=== PATIENT | female | born 1975 | race Caucasian/White ===

== ENCOUNTER 2017-12-11 20:38 | Emergency (ER) | payer BC ==
[2017-12-11 20:44] VITALS: BP 135/87; PULSE 83; RESP 17; TEMP 99
[2017-12-11] MEDS ORDERED: DIPH,PERTUS(ACELL)TETVAC-LF 0.5 ML VIAL IM ONE (20:55)
--- NOTE | 2017-12-11 21:19 | XR ---
EXAMINATION TYPE: XR finger LT DATE OF EXAM: 12/11/2017 COMPARISON: NONE HISTORY: Index finger laceration TECHNIQUE: Three-view left index finger FINDINGS: No acute fractures are evident. Soft tissues appear normal. Patient's reported laceration i s not identified. No radiopaque foreign bodies are evident. IMPRESSION: 1. No acute osseous abnormality. 2. No radiopaque foreign bodies.
--- NOTE | 2017-12-11 21:38 | ED ---
Wound/Laceration HPI - General Chief Complaint: Wound/Laceration Stated Complaint: finger lac Time Seen by Provider: 12/11/17 20:48 Source: patient, RN notes reviewed Mode of arrival: ambulatory Limitations: no limitations - History of Present Illness Initial Comments: This is a 42-year-old female who presents to the emergency department with chief complaint of finger laceration. Patient states that approximately 30 minutes prior to arrival she was cutting frozen chicken with a knife. She slipped and lacerated the back of her left index finger. Patient states she was unable to get the bleeding under control. She states she does not believe she is up-to-date with her tetanus vaccination. Denies any other injury. Denies fever, chills, chest pain, shortness of breath, abdominal pain, nausea or vomiting, constipation or diarrhea, dysuria or hematuria, numbness or tingling, headache or vision changes. - Related Data Home Medications Medication Instructions Recorded Confirmed Citalopram Hydrobromide [CeleXA] 40 mg PO DAILY 12/11/17 12/11/17 Lisinopril [Zestril] 10 mg PO DAILY 12/11/17 12/11/17 SUMAtriptan SUCCINATE [Imitrex] 25 mg PO ONCE 12/11/17 12/11/17 Previous Rx's Medication Instructions Recorded Cephalexin [Keflex] 500 mg PO Q12HR #20 cap 12/11/17 Allergies Allergy/AdvReac Type Severity Reaction Status Date / Time codeine AdvReac Nausea & Verified 12/11/17 20:45 Vomiting Review of Systems ROS Statement: Those systems with pertinent positive or pertinent negative responses have been documented in the HPI. ROS Other: All systems not noted in ROS Statement are negative. Past Medical History Past Medical History: Hypertension History of Any Multi-Drug Resistant Organisms: None Reported Past Surgical History: Section, Tubal Ligation, Uterine Ablation Additional Past Surgical History / Comment(s): eye surgery when 3 years of age Past Psychological History: Anxiety, Depression Smoking Status: Never smoker Past Alcohol Use History: None Reported Past Drug Use History: None Reported General Exam - General Exam Comments Initial Comments: General: Awake and alert, well-developed; in no apparent distress. HEENT: Head atraumatic, normocephalic. Pupils are equal, round and reactive to light. Extraocular movements intact. Neck: Supple. Normal ROM. Cardiovascular: Regular rate and rhythm. No murmurs, rubs or gallops. Chest symmetrical. Respiratory: Lungs clear to auscultation bilaterally. No wheezes, rales or rhonchi. Normal respiratory effort with no use of accessory muscles. Musculoskeletal: Normal active range of motion of left index finger. There is an approximately 1.0 cm flap-like laceration dorsal aspect of left index finger between PIP and DIP joints. Sensation is intact. Radial pulses are 2+ equal and palpable bilaterally. Skin: [place], warm and dry without rashes. Laceration as noted above. Neurological: Alert and oriented x3. CN II-XII grossly intact. Speech is fluent and answers are appropriate. No focal neuro deficits. Psychiatric: Normal mood and affect. No overt signs of depression or anxiety noted. Limitations: no limitations Course Vital Signs 12/11/17 20:40 Temperature 99.0 F Pulse Rate 83 Respiratory 17 Rate Blood Pressure 135/87 O2 Sat by Pulse 99 Oximetry Procedures - Laceration Laceration #1 Consent Obtained: verbal consent Indication: laceration Site: hand (dorsal left index finger ) Size (cm): 1 Description: flap Depth: simple, single layer Anesthetic Used: lidocaine 1% Anesthesia Technique: nerve block Amount (mls): 4 Pre-repair: wound explored, irrigated extensively, deep structures intact Size of Sutures: 5-0 Number of Sutures: 2 Technique: simple, interrupted Patient Tolerated Procedure: well, no complications Medical Decision Making - Medical Decision Making This is a 42-year-old female who presented to the emergency department for evaluation of a left index finger laceration. Patient was made up-to-date with her tetanus vaccination. X-ray revealed no acute osseous abnormalities. 2 sutures were placed and patient tolerated well without complication. She is neurovascularly intact and in no acute distress. She'll be discharged home with prescription for Keflex. Recommended removal of sutures in 10-14 days. Patient is in agreement with plan and voices understanding. All questions were answered. - Radiology Data Radiology results: report reviewed X-ray left index finger impression: 1. No acute osseous abnormality. 2. No radiopaque foreign bodies. Disposition Clinical Impression: Finger laceration Disposition: HOME SELF-CARE Condition: Good Instructions: Finger Laceration (ED) Additional Instructions: Please have sutures removed in 10-14 days either here at the emergency department or with your primary care provider. Please keep wound clean and dry for the next 24-48 hours. Please take medications as prescribed. Please follow up with primary care provider within 1-2 days. Return to emergency department if symptoms should worsen or any concerns arise. Prescriptions: Cephalexin [Keflex] 500 mg PO Q12HR #20 cap Referrals: Tyrell Cardona MD [Primary Care Provider] - 1-2 days Time of Disposition: 21:43
== END 2017-12-11 21:45 | disposition home or self-care (01) ==
LOC: EC 20:38
DX: S61.211A Laceration without foreign body of left index finger without damage to nail, initial encounter (principal); I10 Essential (primary) hypertension; F32.9 Major depressive disorder, single episode, unspecified; Z79.899 Other long term (current) drug therapy; Z88.5 Allergy status to narcotic agent; Z23 Encounter for immunization; W26.0XXA Contact with knife, initial encounter; Y93.G1 Activity, food preparation and clean up
CPT/HCPCS: 12001; 90471; 90715; 99283

== ENCOUNTER 2022-01-25 19:03 | Emergency (ER) | payer OTHER ==
[2022-01-25 19:20] VITALS: TEMP 97.9
[2022-01-25] MEDS ORDERED: KETOROLAC 15 MG/ML 1 ML VIAL IM STA (19:34)
[2022-01-25] MEDS ORDERED: CYCLOBENZAPRINE 10 MG TAB PO STA (19:39)
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
[2022-01-25 21:31] VITALS: BP 144/92; PULSE 77; RESP 18
== END 2022-01-25 21:31 | disposition home or self-care (01) ==
LOC: EC 19:03
DX: S16.1XXA Strain of muscle, fascia and tendon at neck level, initial encounter (principal); I10 Essential (primary) hypertension; F32.A Depression, unspecified; F41.9 Anxiety disorder, unspecified; F12.90 Cannabis use, unspecified, uncomplicated; Z79.82 Long term (current) use of aspirin; Z79.899 Other long term (current) drug therapy; V89.2XXA Person injured in unspecified motor-vehicle accident, traffic, initial encounter; Y92.410 Unspecified street and highway as the place of occurrence of the external cause
CPT/HCPCS: 72072; 72040; 99284; 96372; J1885

== ENCOUNTER 2022-04-07 18:51 | Emergency (ER) | payer OTHER ==
[2022-04-07 19:03] VITALS: BP 148/93; PULSE 90; RESP 16
[2022-04-07 20:14] LABS: Appearance,Urine Clear (Clear); Bacteria,Urine Occasional /hpf; Bilirubin,Urine Negative (Negative); Blood,Urine Negative (Negative); Color,Urine Dark Brown; Glucose,Urine (UA) Negative (Negative); Ketones,Urine Negative (Negative); Leukocyte Esterase,Urine Negative (Negative); Nitrite,Urine Positive (Negative); Protein,Urine Negative (Negative); RBC,Urine <1 /hpf (0-5); Specific Gravity,Urine 1.006 (1.001-1.035); Squamous Epithelial Cell,Urine 3 /hpf (0-4); WBC,Urine 19 /hpf (0-5)
[2022-04-07] MEDS ORDERED: SODIUM CHLORIDE 0.9% 1,000 ML IV STA (21:03)
[2022-04-07 21:34] LABS: Basophils # (A) 0.2 k/uL (0-0.2); Basophils % (A) 1 %; Eosinophils # (A) 0.3 k/uL (0-0.7); Eosinophils % (A) 2 %; HCT 43.3 % (34.0-46.0); HGB 13.5 gm/dL (11.4-16.0); Lymphocytes # (A) 1.2 k/uL (1.0-4.8); Lymphocytes % (A) 8 %; MCH 27.4 pg (25.0-35.0); MCHC 31.1 g/dL (31.0-37.0); MCV 87.9 fL (80.0-100.0); Mean Platelet Volume 7.8; Monocytes # (A) 0.8 k/uL (0-1.0); Monocytes % (A) 5 %; Neutrophils # (A) 12.3 k/uL (1.3-7.7); Neutrophils % (A) 81 %; Platelet Count 261 k/uL (150-450); RBC 4.93 m/uL (3.80-5.40); RDW 12.7 % (11.5-15.5); WBC 15.2 k/uL (3.8-10.6)
[2022-04-07 22:21] LABS: ALT 30 U/L (4-34); AST 26 U/L (14-36); African American GFR (CKD) >90 (>60 ml/min/1.73 sqM); Albumin 3.9 g/dL (3.5-5.0); Alkaline Phosphatase 66 U/L (38-126); Anion Gap 9 mmol/L; Blood Urea Nitrogen 12 mg/dL (7-17); Calcium 8.6 mg/dL (8.4-10.2); Carbon Dioxide 27 mmol/L (22-30); Chloride 102 mmol/L (98-107); Glucose 98 mg/dL (74-99); Non-African American GFR(CKD) >90 (>60 ml/min/1.73 sqM); Potassium 3.8 mmol/L (3.5-5.1); Sodium 138 mmol/L (137-145); Total Bilirubin 0.4 mg/dL (0.2-1.3); Total Protein 7.1 g/dL (6.3-8.2)
[2022-04-07] MEDS ORDERED: CIPROFLOXACIN HCL 250 MG TAB PO STA (22:28)
--- NOTE | 2022-04-07 22:28 | ED ---
General Adult HPI - General Chief complaint: Fever Stated complaint: fever Time Seen by Provider: 04/07/22 20:57 Source: patient Mode of arrival: ambulatory Limitations: no limitations - History of Present Illness Initial comments: Patient is a 46-year-old female presenting with chief complaint of fever. Patient states that for the last week she has been running a fever but she can only control when consistently taking Motrin and Tylenol every 3-4 hours. She admits to fatigue but no other symptoms. She is currently being treated for UTI with Macrobid, treatment was started on Friday. Denies any abdominal pain, nausea, vomiting, dysuria, hematuria, urgency, frequency, chest pain, shortness of breath, neck pain or stiffness, palpitations, weakness. - Related Data Home Medications Medication Instructions Recorded Confirmed lisinopriL [Zestril] 10 mg PO DAILY 12/11/17 01/25/22 Aspirin [Adult Low Dose Aspirin EC] 81 mg PO DAILY 01/25/22 01/25/22 Bisoprolol/Hydrochlorothiazide 1 tab PO DAILY 01/25/22 01/25/22 [Bisoprolol/Hydrochlorothiazide 5-6.25 mg] Citalopram Hydrobromide [CeleXA] 20 mg PO DAILY 01/25/22 01/25/22 Loratadine [Claritin] 10 mg PO DAILY 01/25/22 01/25/22 Previous Rx's Medication Instructions Recorded Cyclobenzaprine [Flexeril] 5 mg PO TID PRN #15 tablet 01/25/22 Ibuprofen [Motrin] 600 mg PO Q8HR PRN #30 tab 01/25/22 Ciprofloxacin HCl [Cipro] 250 mg PO Q12HR 3 Days #5 tab 04/07/22 Allergies Allergy/AdvReac Type Severity Reaction Status Date / Time codeine AdvReac Nausea & Verified 04/07/22 19:03 Vomiting Review of Systems ROS Statement: Those systems with pertinent positive or pertinent negative responses have been documented in the HPI. ROS Other: All systems not noted in ROS Statement are negative. Past Medical History Past Medical History: Hypertension Additional Past Medical History / Comment(s): migraines History of Any Multi-Drug Resistant Organisms: None Reported Past Surgical History: Section, Tubal Ligation, Uterine Ablation Additional Past Surgical History / Comment(s): eye surgery when 3 years of age Past Psychological History: Anxiety, Depression Smoking Status: Never smoker Past Alcohol Use History: None Reported Past Drug Use History: Marijuana General Exam Limitations: no limitations General appearance: alert, in no apparent distress Head exam: Present: atraumatic, normocephalic, normal inspection Eye exam: Present: normal appearance, EOMI. Absent: scleral icterus ENT exam: Present: normal exam, mucous membranes moist Neck exam: Present: normal inspection Respiratory exam: Present: normal lung sounds bilaterally. Absent: respiratory distress, wheezes, rales, rhonchi, stridor Cardiovascular Exam: Present: regular rate, normal rhythm, normal heart sounds. Absent: systolic murmur, diastolic murmur, rubs, gallop, clicks GI/Abdominal exam: Present: soft. Absent: distended, tenderness, guarding, rebound, rigid Back exam: Present: normal inspection. Absent: CVA tenderness (R), CVA tenderness (L) Neurological exam: Present: alert, oriented X3, CN II-XII intact Psychiatric exam: Present: normal affect, normal mood Skin exam: Present: warm, dry, intact, normal color. Absent: rash Course Vital Signs 04/07/22 19:01 Temperature 98 F Pulse Rate 90 Respiratory 16 Rate Blood Pressure 148/93 O2 Sat by Pulse 94 L Oximetry Medical Decision Making - Medical Decision Making Patient is 46-year-old female presenting with chief complaint of fever. Patient is currently being treated for UTI, she is on day 5 of treatment with Macrobid. He denies any abdominal pain, nausea, vomiting, back pain. Today the patient is afebrile On examination abdomen is soft, nontender, nondistended. No CVA tenderness. Heart and lungs are clear to auscultation. Urine is positive for nitrites, there are 19 urine WBC and occasional bacteria. Leukocytosis with WBC of 15.2. Lactic acid is 1.1. Patient is negative for influenza, RSV, Covid. Patient is likely failing treatment with Macrobid, and her antibiotic was switched to Cipro. Her first dose was given here. Patient appears stable for discharge with outpatient follow-up at this time. Follow-up with PCP 1-2 days. Continue Motrin and Tylenol for fever control. Report back to ER if any worsening symptoms. I answered all questions. I discussed return parameters and alarm symptoms. Patient conveyed verbal understanding and agreed to the plan. I discussed this case with my attending Dr. Gauthier. - Lab Data Result diagrams: 04/07/22 21:26 04/07/22 22:00 Lab Results 04/07/22 04/07/22 04/07/22 Range/Units 19:08 19:09 21:26 WBC 15.2 H (3.8-10.6) k/uL RBC 4.93 (3.80-5.40) m/uL Hgb 13.5 (11.4-16.0) gm/dL Hct 43.3 (34.0-46.0) % MCV 87.9 (80.0-100.0) fL MCH 27.4 (25.0-35.0) pg MCHC 31.1 (31.0-37.0) g/dL RDW 12.7 (11.5-15.5) % Plt Count 261 (150-450) k/uL MPV 7.8 Neutrophils % 81 % Lymphocytes % 8 % Monocytes % 5 % Eosinophils % 2 % Basophils % 1 % Neutrophils # 12.3 H (1.3-7.7) k/uL Lymphocytes # 1.2 (1.0-4.8) k/uL Monocytes # 0.8 (0-1.0) k/uL Eosinophils # 0.3 (0-0.7) k/uL Basophils # 0.2 (0-0.2) k/uL Sodium (137-145) mmol/L Potassium (3.5-5.1) mmol/L Chloride (98-107) mmol/L Carbon Dioxide (22-30) mmol/L Anion Gap mmol/L BUN (7-17) mg/dL Creatinine (0.52-1.04) mg/dL Est GFR (CKD-EPI)AfAm (>60 ml/min/1.73 sqM) Est GFR (CKD-EPI)NonAf (>60 ml/min/1.73 sqM) Glucose (74-99) mg/dL Plasma Lactic Acid Reggie (0.7-2.0) mmol/L Calcium (8.4-10.2) mg/dL Total Bilirubin (0.2-1.3) mg/dL AST (14-36) U/L ALT (4-34) U/L Alkaline Phosphatase (38-126) U/L Total Protein (6.3-8.2) g/dL Albumin (3.5-5.0) g/dL Urine Color Dark Brown Urine Appearance Clear (Clear) Urine pH 6.0 (5.0-8.0) Ur Specific [place] 1.006 (1.001-1.035) Urine Protein Negative (Negative) Urine Glucose (UA) Negative (Negative) Urine Ketones Negative (Negative) Urine Blood Negative (Negative) Urine Nitrite Positive H (Negative) Urine Bilirubin Negative (Negative) Urine Urobilinogen 2.0 (<2.0) mg/dL Ur Leukocyte Esterase Negative (Negative) Urine RBC <1 (0-5) /hpf Urine WBC 19 H (0-5) /hpf Ur Squamous Epith Cells 3 (0-4) /hpf Urine Bacteria Occasional H (None) /hpf Influenza Type A (PCR) Not Detected (Not Detectd) Influenza Type B (PCR) Not Detected (Not Detectd) RSV (PCR) Not Detected (Not Detectd) SARS-CoV-2 (PCR) Not Detected (Not Detectd) 04/07/22 04/07/22 Range/Units 21:26 22:00 WBC (3.8-10.6) k/uL RBC (3.80-5.40) m/uL Hgb (11.4-16.0) gm/dL Hct (34.0-46.0) % MCV (80.0-100.0) fL MCH (25.0-35.0) pg MCHC (31.0-37.0) g/dL RDW (11.5-15.5) % Plt Count (150-450) k/uL MPV Neutrophils % % Lymphocytes % % Monocytes % % Eosinophils % % Basophils % % Neutrophils # (1.3-7.7) k/uL Lymphocytes # (1.0-4.8) k/uL Monocytes # (0-1.0) k/uL Eosinophils # (0-0.7) k/uL Basophils # (0-0.2) k/uL Sodium 138 (137-145) mmol/L Potassium 3.8 (3.5-5.1) mmol/L Chloride 102 (98-107) mmol/L Carbon Dioxide 27 (22-30) mmol/L Anion Gap 9 mmol/L BUN 12 (7-17) mg/dL Creatinine 0.62 (0.52-1.04) mg/dL Est GFR (CKD-EPI)AfAm >90 (>60 ml/min/1.73 sqM) Est GFR (CKD-EPI)NonAf >90 (>60 ml/min/1.73 sqM) Glucose 98 (74-99) mg/dL Plasma Lactic Acid Reggie 1.1 (0.7-2.0) mmol/L Calcium 8.6 (8.4-10.2) mg/dL Total Bilirubin 0.4 (0.2-1.3) mg/dL AST 26 (14-36) U/L ALT 30 (4-34) U/L Alkaline Phosphatase 66 (38-126) U/L Total Protein 7.1 (6.3-8.2) g/dL Albumin 3.9 (3.5-5.0) g/dL Urine Color Urine Appearance (Clear) Urine pH (5.0-8.0) Ur Specific [place] (1.001-1.035) Urine Protein (Negative) Urine Glucose (UA) (Negative) Urine Ketones (Negative) Urine Blood (Negative) Urine Nitrite (Negative) Urine Bilirubin (Negative) Urine Urobilinogen (<2.0) mg/dL Ur Leukocyte Esterase (Negative) Urine RBC (0-5) /hpf Urine WBC (0-5) /hpf Ur Squamous Epith Cells (0-4) /hpf Urine Bacteria (None) /hpf Influenza Type A (PCR) (Not Detectd) Influenza Type B (PCR) (Not Detectd) RSV (PCR) (Not Detectd) SARS-CoV-2 (PCR) (Not Detectd) Disposition Clinical Impression: UTI (urinary tract infection) Disposition: HOME SELF-CARE Condition: Good Instructions (If sedation given, give patient instructions): Urinary Tract Infection in Women (ED), Fever in Adults (ED) Additional Instructions: Follow-up with PCP in one to 2 days. Report back to ER if any worsening symptoms. Take medication as prescribed. Utilize Motrin and Tylenol as needed for fever control. Prescriptions: Ciprofloxacin HCl [Cipro] 250 mg PO Q12HR 3 Days #5 tab Is patient prescribed a controlled substance at d/c from ED?: No Referrals: Enzo Canales Jr, [Primary Care Provider] - 1-2 days Time of Disposition: 22:28
[2022-04-07 22:38] VITALS: TEMP 98.2
== END 2022-04-07 22:41 | disposition home or self-care (01) ==
LOC: EC 18:51
DX: N39.0 Urinary tract infection, site not specified (principal); I10 Essential (primary) hypertension; Z20.822 Contact with and (suspected) exposure to COVID-19; Z88.5 Allergy status to narcotic agent
CPT/HCPCS: 36415; 80053; 81001; 83605; 85025; 87086; 87636; 96360; 99284